=== PATIENT | male | born 1965 | race Asian ===

== ENCOUNTER 2018-07-18 05:59 | Day surgery (SDC) | payer OTHER ==
[~2018-07-18] VITALS: Ht 175.3 cm; Wt 67.3 kg
[~2018-07-18 05:59] MED LIST: GLIP10TA14 PO; LISI20TA PO; METF-849 PO; OMEP40CA6 PO
[2018-07-18 07:15] VITALS: BP 140/72; PULSE 82; RESP 22; Ht 175.3 cm; Wt 67.3 kg
[2018-07-18] MEDS ORDERED: nexium (07:31)
--- NOTE | 2018-07-18 07:33 | PREAC ---
Date/Time of Note Date/Time of Note DATE: 07/18/18 TIME: 07:31 Anesthesia Eval and Record Evaluation Time Pre-Procedure Interview DATE: 07/18/18 TIME: 07:31 Age 53 Sex male NPO: 8 hrs Preoperative diagnosis abdominal pain, liver cirrhosis Planned procedure EGD, colonoscopy Past Medical History Past Medical History: Includes Cardio: HTN Endo: Diabetes Hepatic: Cirrhosis Infection(s): Hep C Surgery & Anesthesia Issues No known issue Meds Anticoagulation: No Beta Zenia within 24 hr: No Reason Beta Zenia not given: Pt. not on B-Zenia Reported Medications [nexium] No Conflict Check 07/18/18 Lisinopril* (Prinivil*) 20 Mg Tablet, 20 MG PO DAILY 09/12/12 Glipizide* (Glipizide*) 10 Mg Tablet, 10 MG PO BID 09/12/12 Discontinued Reported Medications Omeprazole* (Omeprazole*) 40 Mg Capsule.dr, 40 MG PO BID 09/12/12 Metformin* (Glucophage*) 500 Mg Tab, 500 MG PO BID 09/12/12 Meds reviewed: Yes Allergies Coded Allergies: shrimp (Verified Allergy, Intermediate, rash, 07/18/18) wheat (Verified Allergy, Intermediate, rash, 07/18/18) Uncoded Allergies: cow milk (Allergy, Intermediate, rash, 07/18/18) Allergies Reviewed: Yes Labs/Studies Labs Reviewed: Reviewed by anesthesiologist test: N/A Pre-procedure Exam Airway: Adequate mouth opening, Adequate thyromental dist Mallampati: Mallampati II Teeth: Normal Lung: Normal Heart: Normal ASA Physical Status ASA physical status: 3 Emergency: None Planned Anesthetic General/MAC: Mask Planned Pain Management Parenteral pain med Pre-operative Attestations Prior to commencing anesthesia and surgery, the patient was re-evaluated, there was verification of: *The patient's identity *The results of appropriate recent lab work and preoperative vital signs *The above evaluation not changing prior to induction *Anesthetic plan, risk benefits, alternative and complications discussed with patient/family; questions answered; patient/family understands, accepts and wishes to proceed. Case Maker used BETTYE PURI MD July 18, 2018 07:33
[2018-07-18] MEDS ORDERED: PROPOFOL 40 ML ONE (07:34)
[2018-07-18] MEDS ORDERED: LIDOCAINE 2% (SDV) 5 ML INJ ONE (07:34)
[2018-07-18] MEDS ORDERED: PROPOFOL 20 ML ONE (07:59)
[2018-07-18] MEDS ORDERED: ONDANSETRON 4 MG INJ IV PRN (08:00)
[2018-07-18 08:07] VITALS: BP 98/63; PULSE 62; RESP 12
[2018-07-18 08:13] VITALS: BP 100/76; PULSE 58; RESP 20
[2018-07-18 08:19] VITALS: BP 104/68; PULSE 57; RESP 20
--- NOTE | 2018-07-18 08:21 | PAC ---
Date/Time of Note Date/Time of Note DATE: 07/18/18 TIME: 08:20 Post-Anesthesia Notes Post-Anesthesia Note Last documented vital signs Vital Signs Date Temp Pulse Resp B/P (MAP) Pulse Ox O2 O2 Flow FiO2 Time Delivery Rate 07/18/18 97.9 82 22 140/72 99 Room Air 07:15 (94) Activity: WNL Respiratory function: WNL Cardiovascular function: WNL Mental status: Baseline Pain reasonably controlled: Yes Hydration appropriate: Yes Nausea/Vomiting absent: Yes Comments BP: 108/68 HR: 65 RR: 15 T: 98 SaO2: 100% BETTYE PURI MD July 18, 2018 08:21
== END 2018-07-18 11:59 | disposition home or self-care (01) ==
LOC: GIL 05:59
PROVIDERS: ATTEND Internal Medicine Gastroenterology
DX: R19.4 Change in bowel habit (principal); K20.8 Other esophagitis; K64.1 Second degree hemorrhoids; I10 Essential (primary) hypertension; E11.9 Type 2 diabetes mellitus without complications
CPT/HCPCS: 43239; 45378; 82962; 88305; 88312; Z7610